=== PATIENT | female | born 1995 | race Two or more races ===

== ENCOUNTER 2022-04-27 09:12 | Outpatient (CLI) | payer OTHER | END 2022-04-27 09:23 | disposition home or self-care (01) | LOC: RX STUDY 09:12 → EDBD 09:12 → RX STUDY 09:23 | PROVIDERS: ATTEND Obstetrics & Gynecology | DX: N94.9 Unspecified condition associated with female genital organs and menstrual cycle (principal); N93.8 Other specified abnormal uterine and vaginal bleeding ==